=== PATIENT | male | born 1985 | race Caucasian/White ===

== ENCOUNTER 2024-12-04 06:08 | Day surgery (SDC) | payer OTHER, SELFPAY ==
[2024-12-04] VITALS (15 sets, daily range): BP systolic 123–156; BP diastolic 79–108; BMI 27.1
[2024-12-04] MEDS: HEPARIN 5000 UNITS SC (06:36)
[2024-12-04] MEDS: TYLENOL 1000 MG PO (06:40)
[2024-12-04] MEDS: NORMOSOL-R/PLASMALYTE-A 1000 IV (06:41)
--- NOTE | 2024-12-04 10:43 | W.IMMPOSTOP ---
Surgical Immed Post Op Note
-
Primary Surgeon: Melvi
Assisting: Naty VELAZQUEZ
Pre-op Diagnosis: Bilateral inguinal hernia and incarcerated umbilical hernia
Post-op Diagnosis: Same
Procedure Performed: Robot assisted laparoscopic repair of bilateral inguinal hernia and incarcerated umbilical hernia (rTAPP)
Anesthesia Type: GETA + TAP block
Specimen / Cultures: None
Estimated Blood Loss: 40cc
Complications: None immediate
Operative Findings: Large indirect defect left side with large cord lipoma, small indirect defect right with moderate cord lipoma; 1.5cm x 1cm umbilical hernia with incarcerated fat, 7cm x 7cm bard soft mesh
--- NOTE | 2024-12-04 10:58 | OR.RPT ---
Operative Report
Operative Report
Primary Surgeon: Melvi
Assisting: Naty VELAZQUEZ
Pre-op Diagnosis: Bilateral inguinal hernia and incarcerated umbilical hernia
Post-op Diagnosis: Same
Procedure Performed: Robot assisted laparoscopic repair of bilateral inguinal hernia and incarcerated umbilical hernia (rTAPP)
Anesthesia Type: GETA + TAP block
Specimen / Cultures: None
Estimated Blood Loss: 40cc
Complications: None immediate
Operative Findings: Large indirect defect left side with large cord lipoma, small indirect defect right with moderate cord lipoma; 1.5cm x 1cm umbilical hernia with incarcerated fat, 7cm x 7cm bard soft mesh
Date of Surgery: 12/04/24
Indications: This 39M developed a symptomatic bilateral inguinal hernia. Umblical hernia was noted on exam. Robot assisted laparoscopic repair of all three hernias was elected.
Description of procedure:� The patient was taken to the operating room and positioned into supine position. The patient�s abdomen was prepped and draped in standard sterile fashion. A time-out was completed verifying correct patient, procedure,
site, positioning, and implants and special equipment prior to beginning this procedure.
A stab incision was made in the left upper quadrant, a Veress needle was inserted and proper position was confirmed by aspiration and saline drop test. Following this, pneumoperitoneum was created with insufflation of carbon dioxide to 12 mmHg. Then
a 8mm robotic trocar was inserted above and to the left of the umbilicus. A laparoscope was inserted and the area of initial trocar entry and Veress needle placement were both inspected and no injuries were found. Two 8mm trocars were then placed
lateral to the rectus sheath under direct visualization.
Both inguinal regions were inspected and the median umbilical ligament, medial umbilical ligament, and lateral umbilical fold were identified. Attention was turned to the right groin. The peritoneum was incised transversely above the defect and a
flap was developed in the caudad direction. Ruperto�s ligament was identified ultimately dissected to its junction with the iliac vein and the space of Retzius was developed bluntly. The dissection was continued inferiorly to the iliopubic tract,
with care taken to avoid injury to the femoral branch of the genitofemoral nerve and the lateral femoral cutaneous nerve. The cord structures were parietalized.
The direct space was inspected and a hernia defect was not identified. The femoral space was inspected no defect was identified. The indirect space was inspected and a hernia was identified and reduced by gentle traction. The canal was inspected and
a small cord lipoma was identified and reduced.
Attention was turned to the left groin ad the above process was repeated. A large indirect defect and large cord lipoma were reduced.
Extra large right and left MID 3D max mesh was passed through a trocar. The mesh was placed into the preperitoneal space and moved into position to lay flat and completely cover the direct, indirect, and femoral spaces with overlap at the midline.
The mesh was secured into place using 2-0 vicryl suture to Ruperto�s ligament medially. Care was taken to avoid the inferolateral triangles containing the iliac vessels and genital nerves. The peritoneal flap was closed over the mesh and secured with
2-0 monocryl stratafix suture in similar positions of safety. A 14g angiocath was used to decompress the preperitoneal space revealing good seal and all mesh in good position without folding or curling.
Attention was turned to the umbilical defect. The peritoneum was incised several cm superior to the defect and a flap was developed in caudad direction. The hernia was identified and incarcerated fatty contents reduced. The defect measured as above.
The defect was closed with 0 PDS stratafix suture. A 7cm by 7cm bard soft mesh was passed into the abdomen, placed into the pocket and apposed to the abdominal wall such that it laid flat without folding or curling. It was secured to the abdominal
wall with 2-0 vicryl suture at cardinal points. The flap was closed with a running 2-0 monocryl suture. A transversus abdominis plane block was performed under laparoscopic vision with marcaine/decadron.
After ensuring adequate hemostasis, the trocars were removed and the pneumoperitoneum allowed to escape. The trocar incisions were closed at the skin level using 4-0 monocryl and topical skin adhesive. All counts were correct and the patient
tolerated the procedure well and was taken to the postanesthesia care unit in stable condition.
The assistance of Naty VELAZQUEZ was required due to the complexity of the procedure. During the procedure she assisted with retraction, resection, and closure of the wound.
[2024-12-04] MEDS: DILAUDID 0.25 MG IV ×2 (11:00→11:21)
== END 2024-12-04 13:20 | disposition home or self-care (01) ==
LOC: SDS 06:08
PROVIDERS: ATTENDING PHYSICIAN Surgery
DX: K40.20 Bilateral inguinal hernia, without obstruction or gangrene, not specified as recurrent (principal); K42.0 Umbilical hernia with obstruction, without gangrene
CPT/HCPCS: 49650; 49594; C1781